=== PATIENT | female | born 1970 | race Caucasian/White ===

== ENCOUNTER 2018-06-30 19:50 | Emergency (ER) | payer MEDICAID ==
[~2018-06-30] VITALS: Ht 168.9 cm; Wt 104.5 kg
[2018-06-30 19:58] VITALS: Ht 168.9 cm; Wt 104.5 kg
[2018-06-30] MEDS ORDERED: PROPRANOLOL HCL20 MG (20:00)
[2018-06-30] MEDS ORDERED: LISINOPRIL2.5 MG (20:00)
[2018-06-30] MEDS ORDERED: XANAX0.25 MG PO (20:01)
[2018-06-30] MEDS ORDERED: LEXAPRO10 MG PO (20:01)
[2018-06-30] MEDS ORDERED: NAPROSYN500 MG PO (22:33)
[2018-06-30 23:15] VITALS: BP 123/79
== END 2018-06-30 23:15 | disposition home or self-care (01) ==
LOC: D.ER 19:50
DX: I82.812 Embolism and thrombosis of superficial veins of left lower extremity (principal)